=== PATIENT | male | born 1940 | race Caucasian/White ===

== ENCOUNTER 2022-06-06 14:24 | Emergency (ER) | payer OTHER, MEDICAID ==
[2022-06-06] MEDS ORDERED: Sodium Chloride 0.9% 10 ML Syringe FLUSH PRN (15:18)
[2022-06-06] MEDS ORDERED: Magnesium Sulfate/Water 2 GM in Premix Bag 1 BAG IV ONE (15:19)
[2022-06-06 15:30] LABS: ANION GAP 14.8 meq/L (7-15); CHLORIDE,CL 103 mmol/L (98-107); SODIUM,NA 140 mmol/L (136-145)
[2022-06-06 15:31] LABS: ESTIMATED GFR 52 mL/min (>=60)
== END 2022-06-06 18:20 ==
LOC: LL.ED 14:24
DX: F03.C0 Unspecified dementia, severe, without behavioral disturbance, psychotic disturbance, mood disturbance, and anxiety (principal)
CPT/HCPCS: 36415; 70450; 74018; 80053; 82140; 83605; 83735; 83880; 84484; 85025; 85379; 93005; 93010; 99284; 99285